=== PATIENT | female | born 2000 | race Two or more races ===

== ENCOUNTER 2022-01-09 13:00 | Inpatient (IN) | payer OTHER ==
[~2022-01-09] VITALS: Ht 165.1 cm; Wt 69.4 kg
[2022-01-21] MEDS ORDERED: PRENATAL TABLE1 EAC3 (13:31)
[2022-01-21] MEDS ORDERED: DIALYVITE 800-1 EACH (13:31)
== END 2022-01-24 11:38 | disposition home or self-care (01) | DRG 807 ==
LOC: LDR 01-20 13:00 → OB/GYN 01-22 02:39
PROVIDERS: ADMIT Specialist; ATTEND Specialist
PROC: 4A1HXCZ Monitoring of Products of Conception, Cardiac Rate, External Approach (ICD-10-PCS; 2022-01-21)
PROC: 10E0XZZ Delivery of Products of Conception, External Approach (ICD-10-PCS; principal; 2022-01-22)
PROC: 0W8NXZZ Division of Female Perineum, External Approach (ICD-10-PCS; 2022-01-22)
DX: O48.0 Post-term pregnancy (principal); Z37.0 Single live birth; Z3A.40 40 weeks gestation of pregnancy; Z20.822 Contact with and (suspected) exposure to COVID-19